=== PATIENT | male | born 1950 | race African-American/Black ===

== ENCOUNTER → 2017-03-20 | Day surgery (SDC) | payer MEDICARE ==
[~2017-03-20] MED LIST: MULTI-DAY VITA1 EACH PO; WAL-PROFEN200 M2 PO
--- NOTE | ~2017-03-20 | OR ---
Unit #: [id number] #: [id number] Patient: REBECA CARDONA [id number] [address] [id number] O MR#: [id number] NAME: REBECA CARDONA ROOM: Date of Procedure: 03/20/2017 Admission Date: 03/20/2017 Surgeon: Kirt Thomas M.D. : 1950 Attending Physician: Kirt Thomas M.D. Primary Care Physician: Generic Doctor Not In System OPERATIVE REPORT PREOPERATIVE DIAGNOSIS Phimosis. POSTOPERATIVE DIAGNOSIS Phimosis. PROCEDURE PERFORMED Circumcision. ANESTHESIA General. DESCRIPTION OF PROCEDURE After informed consent, he was taken to the operating room, placed under general anesthetic, placed supine. His penis, scrotum, and perineum were prepped and draped in the usual sterile fashion. His excess foreskin was delineated using a marking pen. A mixture of Marcaine and lidocaine was used for penile block. The excess foreskin was excised in a systematic fashion. Parallel lines were made around the penis and excess foreskin. Care was taken to excise the excess foreskin, but not injure the underlying tissue. Hemostasis was achieved using electrocautery. The skin edges were approximated using interrupted chromic suture. Antibiotic ointment and gauze were placed as a dressing. The patient will be discharged home; return to see me as an outpatient. He tolerated the procedure well. All counts were correct at the end of the procedure. Dictated by... Oralia Orlando/carley TD: 03/21/2017 03:27 JOB #: [id number] Unit #: [id number] #: [id number] Patient: REBECA CARDONA OPERATIVE REPORT Page 1 of 1 X Kirt Thomas MD X PROCEDURE OPERATIVE NOTE
--- NOTE | ~2017-03-20 | EKG ---
PATIENT: REBECA CARDONA UNIT #: [id number] Ventricular Rate: 78 BPM Atrial Rate: 78 BPM P-R Interval: 156 ms QRS Duration: 82 ms Q-T Interval: 398 ms QTC Calculation(Bezet): 453 ms P [place]: 45 degrees Calculated R [place]: 20 degrees Calculated T [place]: 41 degrees Diagnosis Line: Normal sinus rhythm Diagnosis Line: Nonspecific T wave abnormality Diagnosis Line: Abnormal ECG Diagnosis Line: No previous ECGs available Diagnosis Line: Confirmed by LEOBARDO LEIGH MD ([id number]) on Diagnosis Line: 03/20/2017 4:24:51 PM INTERPRETING MD: SANTOS
== END | disposition home or self-care (01) ==
LOC: CSUR 11:21 → EDBD 13:30
DX: N47.1 Phimosis (principal); I73.9 Peripheral vascular disease, unspecified; Z79.1 Long term (current) use of non-steroidal anti-inflammatories (NSAID); Z79.899 Other long term (current) drug therapy
CPT/HCPCS: 88304; 93005; J0690; J2250; J2270; J2765

== ENCOUNTER 2017-03-22 14:09 | Emergency (ER) | payer MEDICARE | END 2017-03-22 15:50 | disposition home or self-care (01) | LOC: CED 14:09 | DX: N99.820 Postprocedural hemorrhage of a genitourinary system organ or structure following a genitourinary system procedure (principal); Z90.49 Acquired absence of other specified parts of digestive tract | CPT/HCPCS: 12001; 99283 ==